=== PATIENT | female | born 1970 | race Caucasian/White ===

== ENCOUNTER 2020-11-14 11:08 | Inpatient (IN) | payer OTHER ==
[~2020-11-14] VITALS: Ht 162.6 cm; Wt 65.8 kg
--- NOTE | 2020-11-14 11:20 | NUR ---
BIB RA 881 FROM HOME,ABDOMINAL PAIN X 5 DAYS ASSOC. W/ NAUSEA. PATIENT ASSISTED TO BED 11, NO DISTRESS NOTED. PLACED ON THE MANAGER CARE. URINE SAMPLE OBTAINED AND SENT TO LAB.
[2020-11-14 11:43] LABS: BILIRUBIN,URINE Negative (NEGATIVE); COLOR,URINE YELLOW (YELLOW); LEUKOCYTE ESTERASE ,URINE Large (NEGATIVE); NITRITE, URINE Negative (NEGATIVE); PROTEIN,URINE >=300 mg/dl (NEGATIVE); UGLUCOSE Negative (NEGATIVE); UROBILINOGEN,URINE 0.2 EU/dL (0.2)
[2020-11-14] MEDS ORDERED: MORPHINE SULFATE INJ 4 MG/ML DISP.SYRIN ONE (11:43)
[2020-11-14] MEDS ORDERED: ONDANSETRON HCL/PF 4 MG/2 ML VIAL ONE (11:43)
--- NOTE | 2020-11-14 11:50 | NUR ---
IV LINE ESTABLISHED BLOOD DRAWN AND SENT TO LAB.
[2020-11-14 11:55] LABS: RBC,URINE TOO NUMEROUS TO COUN /HPF (0-2); SQUAMOUS EPITHELIAL CELL,UR Many /HPF (None Seen); WBC,URINE TOO NUMEROUS TO COUN /HPF (0-3)
[2020-11-14 11:56] LABS: BACTERIA,URINE 4+ /HPF (None Seen)
[2020-11-14 11:58] LABS: BASOPHILS # (AUTO) 0.1 K/uL (0.0-0.2); BASOPHILS % (AUTO) 0.7 % (0.0-2.0); EOSINOPHILS % (AUTO) 0.2 % (0.0-6.0); HEMATOCRIT 28 % (33-45); HEMOGLOBIN 8.3 g/dL (11.5-14.8); LYMPHOCYTES # (AUTO) 1.8 K/uL (0.8-4.8); LYMPHOCYTES % (AUTO) 14.1 % (20.0-44.0); MEAN CORPUSCULAR HGB CONC 30 g/dl (31.0-36.0); MEAN CORPUSCULAR VOLUME 65 fL (82-100); MONOCYTES # (AUTO) 1.1 K/uL (0.1-1.30); MONOCYTES % (AUTO) 9.1 % (2.0-12.0); NEUTROPHILS # (AUTO) 9.6 K/uL (1.8-8.9); NEUTROPHILS % (AUTO) 75.9 % (43.0-81.0); PLATELET COUNT (AUTO) 289 K/uL (150-450); RED BLOOD CELL COUNT(AUTO) 4.27 MIL/uL (4.0-5.2); WHITE BLOOD COUNT (AUTO) 12.7 K/uL (4.3-11.0)
[2020-11-14] MEDS ORDERED: MORPHINE SULFATE INJ 2 MG/ML DISP.SYRIN IV ONE (12:00)
[2020-11-14] MEDS ORDERED: ONDANSETRON HCL/PF 4 MG/2 ML VIAL IVP ONE (12:00)
[2020-11-14 12:03] LABS: CALCIUM, SERUM 9.3 mg/dL (8.5-10.1); CREATININE 0.8 mg/dL (0.6-1.3); POTASSIUM 3.4 mmol/L (3.5-5.1)
[2020-11-14 12:09] LABS: ALBUMIN 3.3 g/dL (3.4-5.0); BILIRUBIN,DIRECT 0.1 mg/dL (0.0-0.2); BILIRUBIN,TOTAL 0.5 mg/dL (0.2-1.0); TOTAL PROTEIN, SERUM 7.8 g/dL (6.4-8.2)
[2020-11-14] MEDS ORDERED: CEFTRIAXONE 1 G in IV D5W 50 ML IV ONE (12:30)
[2020-11-14] MEDS ORDERED: IV NS 0.9% 1,000 ML BAG IV ONE (12:30)
[2020-11-14] MEDS ORDERED: CEFTRIAXONE 1GM BAG (ER ONLY) 50 ML IV ONE (12:33)
[2020-11-14] MEDS ORDERED: FLAGYL/NS RTU 500 MG/100 ML PIGGYBACK IV ONE (13:00)
--- NOTE | 2020-11-14 13:24 | NUR ---
COVID SWAB SENT TO LAB.
--- NOTE | 2020-11-14 13:42 | NUR ---
SENAIT CALLED. AWAITING CALL BACK.
--- NOTE | 2020-11-14 14:20 | NUR ---
bed assigned 323-2
--- NOTE | 2020-11-14 14:26 | NUR ---
REPORT GIVEN TO GURU COLMENARES.
--- NOTE | 2020-11-14 15:04 | NUR ---
PATIENT TRANSFERRED TO ROOM 323-1 IN STABLE CONDITION. NO DISTRESS NOTED.
--- NOTE | 2020-11-14 15:05 | NUR ---
MS RN NOTE PATIENT ADMITTED FROM ER. PATIENT IS IN NO ACUTE DISTRESS. VITAL SIGNS ARE WNL. PATIENT IS AMBULATORY. IV ACCES ON RIGHT AC RAFAEL 20. SAFETY PRECAUTIONS ARE ON, BED IS LOCKED IN THE LOWEST POSITION WITH SIDE RAILS UP, CALL LIGHT WITHIN REACH, WILL CONTINUE TO MONITOR.
[2020-11-14] MEDS: ENOXAPARIN SODIUM 40 MG/0.4 ML DISP.SYRIN SQ SCH ×2 (15:30→16:55)
[2020-11-14] MEDS ORDERED: LABETALOL 20 MG/4 ML VIAL IV PRN (15:30)
[2020-11-14] MEDS ORDERED: ONDANSETRON HCL/PF 4 MG/2 ML VIAL IVP PRN (15:30)
[2020-11-14] MEDS ORDERED: ACETAMINOPHEN 325 MG TABLET PO PRN (15:30)
[2020-11-14] MEDS ORDERED: MORPHINE SULFATE INJ 2 MG/ML DISP.SYRIN IV PRN (15:30)
[2020-11-14 15:54] LABS: BAND % (MANUAL) 2 % (0.0-5.0); LYMPHOCYTES % (MANUAL) 14 % (16-48); MONOCYTES % (MANUAL) 9 % (0-11.0); NEUTROPHILS % (MANUAL) 75 (42-76)
[2020-11-14 16:01] LABS: IRON, SERUM 14 ug/dl (50-175); TOTAL IRON BINDING CAPACITY 404 ug/dl (250-450)
[2020-11-14] MEDS: PHENAZOPYRIDINE HCL 200 MG TABLET PO SCH ×2 (16:53→16:55)
[2020-11-14] MEDS: IV NS 0.9% 1,000 ML IV PRN (16:54)
--- NOTE | 2020-11-14 17:19 | NUR ---
MS RN NOTE PATIENT REFUSED SCHEDULED MEDICATION LEVONOX, EDUCATED RISK VS BENEFITS, PATIENT KEPT OF REFUSING
--- NOTE | 2020-11-14 18:30 | NUR ---
MS RN CLOSING NOTE PATIENT IS IN BED RESTING, PATIENT IS IN NO ACUTE DISTRESS. PATIENT IS AMBULATORY. SAFETY PRECAUTIONS ARE ON, BED IS LOCKED IN THE LOWEST POSITION WITH SIDE RAILS UP, CALL LIGHT WITHIN REACH, ENDORSE PATIENT TO PATTERN ATTENDANT NURSE.
--- NOTE | 2020-11-14 19:20 | NUR ---
RN OPENING NOTE PATIENT IN BED, EYES CLOSED. EASILY AWAKENED. PATIENT DOES NOT REPORT ANY PAIN OR DISCOMFORT AT THIS TIME. BREATHING EVEN AND UNLABORED, TOLERATING ROOM AIR. PATIENT IS ABLE TO MAKE NEEDS KNOWN, A/O X 4. REFUSES IV FLUIDS AT THIS TIME. PATIENT'S IV ACCESS PATENT AND INTACT. SAFETY MEASURES IN PLACE: BED LOCKED IN LOWEST POSITION, SIDE RAILS UP, CALL LIGHT WITHIN REACH. WILL MONITOR PATIENT CLOSELY.
[2020-11-14 20:00] VITALS: BP 106/59
[2020-11-14] MEDS: METRONIDAZOLE 500MG/ NS 100ML 500 MG in PREMIX 1 EA IV SCH (21:16)
--- NOTE | 2020-11-14 22:30 | NUR ---
RN NOTE OBTAINED KDUR 10 MEQ X 1 NOW FOR POTASSIUM LEVEL OF 3.4. ORDER FROM LIZETH LOYA.
[2020-11-14] MEDS ORDERED: POTASSIUM CHLORIDE 10 MEQ TABLET.SA PO ONE (23:00)
[2020-11-15] VITALS (8 sets, daily range): BP systolic 94–120; BP diastolic 47–67
[2020-11-15] MEDS: METRONIDAZOLE 500MG/ NS 100ML 500 MG in PREMIX 1 EA IV SCH ×3 (05:04→21:13)
[2020-11-15 06:23] LABS: BASOPHILS # (AUTO) 0.1 K/uL (0.0-0.2); BASOPHILS % (AUTO) 0.7 % (0.0-2.0); HEMATOCRIT 23 % (33-45); HEMOGLOBIN 7.1 g/dL (11.5-14.8); LYMPHOCYTES # (AUTO) 1.4 K/uL (0.8-4.8); LYMPHOCYTES % (AUTO) 17.5 % (20.0-44.0); MEAN CORPUSCULAR HGB CONC 31 g/dl (31.0-36.0); MEAN CORPUSCULAR VOLUME 65 fL (82-100); MONOCYTES # (AUTO) 1.2 K/uL (0.1-1.30); MONOCYTES % (AUTO) 15.4 % (2.0-12.0); NEUTROPHILS # (AUTO) 5.1 K/uL (1.8-8.9); NEUTROPHILS % (AUTO) 65.4 % (43.0-81.0); PLATELET COUNT (AUTO) 209 K/uL (150-450); RED BLOOD CELL COUNT(AUTO) 3.52 MIL/uL (4.0-5.2); WHITE BLOOD COUNT (AUTO) 7.7 K/uL (4.3-11.0)
[2020-11-15 07:16] LABS: ALBUMIN 2.7 g/dL (3.4-5.0); BILIRUBIN,TOTAL 0.3 mg/dL (0.2-1.0); CALCIUM, SERUM 8.7 mg/dL (8.5-10.1); CREATININE 0.7 mg/dL (0.6-1.3); PHOSPHORUS 2.8 mg/dL (2.5-4.9); POTASSIUM 3.9 mmol/L (3.5-5.1); TOTAL PROTEIN, SERUM 6.6 g/dL (6.4-8.2)
--- NOTE | 2020-11-15 07:24 | NUR ---
RN CLOSING NOTE PATIENT IN BED, AWAKE. PATIENT DOES NOT REPORT ANY PAIN OR DISCOMFORT AT THIS TIME. BREATHING EVEN AND UNLABORED, TOLERATING ROOM AIR. PATIENT IS ABLE TO MAKE NEEDS KNOWN, A/O X 4.EDUCATED PATIENT ON IV HYDRATION, WILLING TO KEEP IV ON NOW. NS @75 ML/HR INFUSING WELL. SAFETY MEASURES IN PLACE: BED LOCKED IN LOWEST POSITION, SIDE RAILS UP, CALL LIGHT WITHIN REACH. ALL NEEDS CARRIED OUT. WILL ENDORSE TO DAY SHIFT NURSE FOR LEODAN.
--- NOTE | 2020-11-15 08:00 | NUR ---
RN OPENING NOTE PT AWAKE IN BED RESTING. ON RA WITH NO SOB OR RESPIRATORY DISTRESS PRESENT. A/O X4 AND YAKUT SPEAKING. NO COMPLAINT OF PAIN OR NAUSEA AT THIS TIME. NO TRAFFIC CONTROL SPECIALIST PRESENT. NO EDEMA PRESENT. SELF AMBULATORY WITH BATHROOM PRIVILEGES. SKIN IS INTACT. IV PRESENT ON R AC 20G AND FLUSHES WELL. LABS AND ORDERS REVIEWED. SAFETY MEASURES IN PLACE. SIDE RAILS RAISED. BED LOWERED. CALL LIGHT WITHIN REACH. WILL CONTINUE TO MONITOR.
[2020-11-15 08:15] LABS: EOSINOPHILS % (MANUAL) 1 % (0-4); LYMPHOCYTES % (MANUAL) 20 % (16-48); MONOCYTES % (MANUAL) 16 % (0-11.0); NEUTROPHILS % (MANUAL) 63 (42-76)
[2020-11-15] MEDS: ENOXAPARIN SODIUM 40 MG/0.4 ML DISP.SYRIN SQ SCH (09:00)
[2020-11-15] MEDS: PHENAZOPYRIDINE HCL 200 MG TABLET PO SCH ×2 (09:35→12:28)
[2020-11-15] MEDS ORDERED: CEFTRIAXONE 1 G in IV D5W 50 ML IV SCH (13:00)
[2020-11-15] MEDS ORDERED: SOD FERRIC GLUC 125 MG in IV NS 0.9% 100 ML IV SCH (14:00)
[2020-11-15 16:19] LABS: HEMOGLOBIN 6.9 g/dL (11.5-14.8)
--- NOTE | 2020-11-15 17:00 | NUR ---
RN NOTE NOTIFIED BY WILLIE FROM LAB FOR HGB OF 6.9 AND HCT OF 22. NOTIFIED MD HUTCHINSON, 1 UNIT OF PRBC ORDERED. ORDER PLACED, CONSENTS SIGNED BY PT. WILL CONTINUE TO MONITOR.
--- NOTE | 2020-11-15 17:37 | NUR ---
RN NOTE PT COMPLAINT OF HEADACHE, 06/04. TYLENOL OFFERED AND ACCEPTED BY PT. ABLE TO TAKE PILLS WHOLE WITH NO ASPIRATION. PT TYLENOL MED NOT SCANNED DUE TO UNSCANNABLE BAR CODE. WILL CONTINUE TO MONITOR.
--- NOTE | 2020-11-15 18:05 | NUR ---
RN CLOSING NOTE PT AWAKE IN BED RESTING. ON RA WITH NO SOB OR RESPIRATORY DISTRESS PRESENT. A/O X4 AND FAROESE SPEAKING. NO COMPLAINT OF PAIN OR NAUSEA AT THIS TIME. NO CARGO ROUTER PRESENT. NO EDEMA PRESENT. SELF AMBULATORY WITH BATHROOM PRIVILEGES. SKIN IS INTACT. IV PRESENT ON R AC 20G AND FLUSHES WELL. ROUTINE MEDS GIVEN.LABS AND ORDERS REVIEWED. PENDING BLOOD TRANSFUSION FOR HGB OF 6.9. SAFETY MEASURES IN PLACE. SIDE RAILS RAISED. BED LOWERED. CALL LIGHT WITHIN REACH. REPORT TO BE GIVEN TO NIGHT NURSE FOR LEODAN.
--- NOTE | 2020-11-15 19:00 | NUR ---
RN NOTES: -RECEIVE AWAKE ON BED,A/OX4, ORIENTED TO UNIT AND STAFF,ON ROOM AIR, NO SIGN OF SOB OR RESPIRATORY DISTRESS,RAC G#20 INTACT WITH IVF OF NS AT 75 ML/HR ONGOING,LATEST HG-6.9 FOR BT OF 1 UNIT PRBC, PER BHARATH/RN ENDORSEMENT ITS NOT YET READY IN THE LAB, CONSENT WAS SIGNED, THIS IS HER FIRST TRANSFUSION IN [facility], NO BLOOD BANK STICKER YET -STILL AWAITING FOR BLOOD TYPING AND SCREENING TO BE DONE -FALL , SAFETY AND ASPIRATION PRECAUTION OBSERVED, SHE VERBALIZED SHE FELT A BIT HUNGRY, GIVEN GELLO AND PUDDING, SHE IS VERY DELIGHTED. -EXPLAINED TO HER WE WILL WAIT FOR THE CALL BACK FROM THE LAB AND KEEP HER NOTIFIED.
--- NOTE | 2020-11-15 19:55 | NUR ---
RN NOTES; --LA FROM THE LAB JUST CAME IN AND EXTRACT BLOOD FOR BLOOD TYPING AND CROSS MATCHING, SHE WILL NOTIFY US ONCE BLOOD TRANSFUSION IS AVAILABLE.
[2020-11-15] MEDS: IV NS 0.9% 1,000 ML IV PRN (22:05)
--- NOTE | 2020-11-15 22:05 | NUR ---
RN NOTES: IVF CONSUMED, REPLACED WITH NEW BAF , UNABLE TO SCAN, MANUALLY ENTERED BAR CODE,CONTINUE OF NS AT 75 ML/HR, BLOOD IS READY FOR HEAVY DUTY CUSTODIAN IN THE LAB.
--- NOTE | 2020-11-15 22:39 | NUR ---
RN NOTES: 2209-WENT TO LAB TO P/U THE BLOOD, CHECKED WITH CONFERENCE CENTER MANAGER-LAYA. 2224-CHRCK WITH THERESA/DARRIAN PRIOR TO STRT OF BLOOD TRANSFUSION -RH O POSITIVE, 358 ML, EXPIRY: 12/14/2020 ; UNIT 3: [id number] -SCAN PATIENT WRIST BAND, BLOOD BANK NUMBER -CHECK BAG, NO LEAKAGE, NO BUBBLES NOTED. -V/S--T-97.9 RI-70 RR-18 T-98 BP-117/60 -BLOOD TRANSFUSION STARTED AT 2231
--- NOTE | 2020-11-15 22:43 | NUR ---
RN NOTES: STAYED WITH THE PATIENT ON THE FIRST 15 MINUTES AND OBSERVED FOR TRANSFUSION REACTION, SLOWLY INCREASED THE RATE.
--- NOTE | 2020-11-15 23:35 | NUR ---
RN NOTES: -CONTINUE ON CLOSE WATCH, RN STAYED MOST OF THE TIME IN HER BED SIDE, NO ITCHINESS, NO ALTERATION IN V/S, NO FEVER, NO HEADACHE, NO HIVES, NO RASHES, NO BACK PAIN, NO HIVES NOTED. -NO TRANSFUSION REACTION AT THIS TIME.
[2020-11-16 00:01] VITALS: BP 101/60
[2020-11-16 00:31] VITALS: BP 105/61
[2020-11-16 01:31] VITALS: BP 108/65
--- NOTE | 2020-11-16 01:46 | NUR ---
RN NOTES: BT COMPLETED AT 0143, NO TRANSFUSION REACTION NOTED CONTINUE TO MONITOR POST TRANSFUSION.
[2020-11-16 02:22] LABS: HEMOGLOBIN 7.9 g/dL (11.5-14.8)
--- NOTE | 2020-11-16 02:30 | NUR ---
RN NOTES: SHE WENT TO THE BATHROOM WHEN SHE CAME BACK, IV CANNULA WAS OUT. REQUEST TO REINSERT AGAIN, VERY COOPERATIVE, INSERTED ON THE LH G#22, SECURED WITH TRANSPARENT DRESSING,IVF REQUEST TO RESUME IVF LATER SHE WANT TO REST HER HAND FOR AWHILE.
--- NOTE | 2020-11-16 05:21 | NUR ---
RN NOTES: REFUSE TO PUT BACK HER IVF, SHE WANT TO SLEEP, KEPT CALL LIGHT WITHIN EASY REACH, NO FEVER, NO SIGN OF TRANSFUSION REACTION NOTED.
[2020-11-16] MEDS: METRONIDAZOLE 500MG/ NS 100ML 500 MG in PREMIX 1 EA IV SCH (05:27)
--- NOTE | 2020-11-16 07:02 | NUR ---
RN NOTES: AWAKE, SHE WAS TELLING HER IV CANNULA IS OUT, WHEN RN CHECKED, THERE IS BACK FLOW, EXPLAINED TO HER WE WILL KEEP IT, SHE VERBALIZED "I WANNA GO HOME TODAY, I HAVE CLASS TOMORROW", REQUEST HER TO WAIT AND WILL LET DOCTOR KNOW MAYBE HER IV/ATB WILL BE CHNAGE TO ORAL AND SHE CAN BE DISCHARGE, HER LATEST HG-7.9, ENDORSED FOR CONTINUITY OF CARE.
--- NOTE | 2020-11-16 07:48 | NUR ---
RN OPENING NOTE PT AWAKE IN BED RESTING. ON RA WITH NO SOB OR RESPIRATORY DISTRESS PRESENT. A/O X4 AND [place] SPEAKING. NO COMPLAINT OF PAIN OR NAUSEA AT THIS TIME. NO DIAMOND SIZER PRESENT. NO EDEMA PRESENT. SELF AMBULATORY WITH BATHROOM PRIVILEGES. SKIN IS INTACT. IV PRESENT ON R HAND 20G AND FLUSHES WELL. PT REQUESTING D/C TODAY, NOTIFIED. LABS AND ORDERS REVIEWED. SAFETY MEASURES IN PLACE. SIDE RAILS RAISED. BED LOWERED. CALL LIGHT WITHIN REACH. WILL CONTINUE TO MONITOR.
[2020-11-16] MEDS: ENOXAPARIN SODIUM 40 MG/0.4 ML DISP.SYRIN SQ SCH (08:17)
[2020-11-16 08:24] LABS: BASOPHILS # (AUTO) 0.1 K/uL (0.0-0.2); BASOPHILS % (AUTO) 1.3 % (0.0-2.0); EOSINOPHILS % (AUTO) 2.5 % (0.0-6.0); HEMATOCRIT 29 % (33-45); HEMOGLOBIN 8.9 g/dL (11.5-14.8); LYMPHOCYTES # (AUTO) 1.5 K/uL (0.8-4.8); LYMPHOCYTES % (AUTO) 23.6 % (20.0-44.0); MEAN CORPUSCULAR HGB CONC 30 g/dl (31.0-36.0); MEAN CORPUSCULAR VOLUME 69 fL (82-100); MONOCYTES # (AUTO) 0.7 K/uL (0.1-1.30); MONOCYTES % (AUTO) 11.5 % (2.0-12.0); NEUTROPHILS # (AUTO) 3.9 K/uL (1.8-8.9); NEUTROPHILS % (AUTO) 61.1 % (43.0-81.0); PLATELET COUNT (AUTO) 288 K/uL (150-450); RED BLOOD CELL COUNT(AUTO) 4.28 MIL/uL (4.0-5.2); WHITE BLOOD COUNT (AUTO) 6.4 K/uL (4.3-11.0)
[2020-11-16 09:29] LABS: CALCIUM, SERUM 9.2 mg/dL (8.5-10.1); CREATININE 0.6 mg/dL (0.6-1.3); MAGNESIUM 2.2 mg/dL (1.8-2.4); PHOSPHORUS 3.1 mg/dL (2.5-4.9); POTASSIUM 3.8 mmol/L (3.5-5.1)
[2020-11-16] MEDS ORDERED: CEPH500C2 PO (12:52)
--- NOTE | 2020-11-16 12:54 | NUR ---
SENIOR ENVIRONMENTAL PRACTICE LEADER NOTE PT DISCHARGED HOME WITH BUS PASS SUPPLIED BY NURSING RESPIRATORY CARE ASSISTANT. PT IN STABLE CONDITION. IV LINE REMOVED. ID BAND REMOVED. PRESCRIPTION GIVEN TO PT. SKIN IS INTACT. BELONGINGS CHECKED AND GIVEN TO PT.
[2020-11-16 13:39] LABS: EOSINOPHILS % (MANUAL) 4 % (0-4); LYMPHOCYTES % (MANUAL) 23 % (16-48); MONOCYTES % (MANUAL) 9 % (0-11.0); NEUTROPHILS % (MANUAL) 64 (42-76)
[2020-11-16] MEDS ORDERED: METRONIDAZOLE 500 MG TABLET PO SCH (14:00)
== END 2020-11-16 13:00 | disposition home or self-care (01) | DRG 463 ==
LOC: ER 11:11 → MED 14:37
PROVIDERS: ADMIT Internal Medicine; ATTEND Hospitalist
PROC: 30233N1 Transfusion of Nonautologous Red Blood Cells into Peripheral Vein, Percutaneous Approach (ICD-10-PCS; principal; 2020-11-15)
DX: N39.0 Urinary tract infection, site not specified (principal); E87.8 Other disorders of electrolyte and fluid balance, not elsewhere classified; E87.1 Hypo-osmolality and hyponatremia; K57.32 Diverticulitis of large intestine without perforation or abscess without bleeding; D50.9 Iron deficiency anemia, unspecified; F15.90 Other stimulant use, unspecified, uncomplicated; E87.6 Hypokalemia; E86.0 Dehydration; K59.00 Constipation, unspecified; Z98.891 History of uterine scar from previous surgery; Z20.822 Contact with and (suspected) exposure to COVID-19
CPT/HCPCS: 36415; 76705-TC; 80048-TC; 80053-TC; 80076-TC; 81001; 82728-TC; 83540-TC; 83690-TC; 83735-TC; 84100-TC; 85025-TC; 85027-TC; 86850-TC; 87081-TC; 87086-TC; 87186-TC; A4216; C9803; G0378; J0696; J1650; J2270; J2405; J2916; J7030; J7050; J7060; P9016

== ENCOUNTER 2020-12-28 19:14 | Emergency (ER) | payer OTHER ==
[~2020-12-28] VITALS: Ht 167.6 cm; Wt 90.7 kg
[~2020-12-28 19:14] MED LIST: CEPH500C2 PO
--- NOTE | 2020-12-28 19:20 | NUR ---
HAYDER FOR BIZARRE BEHAVIOR. PER EMS PT RAN IN TO SOMEONE'S HOUSE. PT AGITATED AND CONFUSED ON TRIAGE . UNABLE TO PROVIDE INFO HOWEVER ADMITTED ON USING METH, PT WAS PLACED IN BED 13 ER, ON MONITOR. VSS. SI PRECAUTION IMPLEMENTED, UNDER OBSERVATION OF A SITTER. NEEDS ATENDED , WILL CONT TO MONITOR ,
--- NOTE | 2020-12-28 19:28 | NUR ---
PT PROVIDED WITH WARM BLANKETS.
[2020-12-28] MEDS ORDERED: OLANZAPINE 10 MG VIAL IM ONE ×4 (19:37→21:00)
[2020-12-28] MEDS ORDERED: LORAZEPAM INJ 2 MG/ML VIAL ONE ×2 (19:38→20:45)
[2020-12-28] MEDS ORDERED: LORAZEPAM INJ 2 MG/ML VIAL IM ONE (20:00)
[2020-12-28 20:23] LABS: BASOPHILS # (AUTO) 0.1 K/uL (0.0-0.2); BASOPHILS % (AUTO) 1.1 % (0.0-2.0); EOSINOPHILS % (AUTO) 2.1 % (0.0-6.0); HEMATOCRIT 29 % (33-45); HEMOGLOBIN 8.7 g/dL (11.5-14.8); LYMPHOCYTES # (AUTO) 1.2 K/uL (0.8-4.8); LYMPHOCYTES % (AUTO) 16.4 % (20.0-44.0); MEAN CORPUSCULAR HGB CONC 31 g/dl (31.0-36.0); MEAN CORPUSCULAR VOLUME 71 fL (82-100); MONOCYTES # (AUTO) 0.8 K/uL (0.1-1.30); MONOCYTES % (AUTO) 11.3 % (2.0-12.0); NEUTROPHILS % (AUTO) 69.1 % (43.0-81.0); PLATELET COUNT (AUTO) 291 K/uL (150-450); RED BLOOD CELL COUNT(AUTO) 4.05 MIL/uL (4.0-5.2); WHITE BLOOD COUNT (AUTO) 7.3 K/uL (4.3-11.0)
[2020-12-28 20:36] LABS: CALCIUM, SERUM 9.8 mg/dL (8.5-10.1); CARBON DIOXIDE 24 mmol/L (21-32); CHLORIDE 107 mmol/L (98-107); CREATININE 0.9 mg/dL (0.6-1.3); GLUCOSE 108 mg/dL (74-106); POTASSIUM 3.2 mmol/L (3.5-5.1); SODIUM SERUM 142 mmol/L (136-145); UREA NITROGEN, BLOOD 16 mg/dL (7-18)
--- NOTE | 2020-12-28 20:53 | NUR ---
PT MEDICATED ORDERED.
[2020-12-28 20:54] LABS: ALANINE AMINOTRANSFERASE 34 U/L (12-78); ALKALINE PHOSPHATASE 59 U/L (46-116); ASPARTATE AMINOTRANSFERASE 58 U/L (15-37); BILIRUBIN,DIRECT 0.2 mg/dL (0.0-0.2); BILIRUBIN,TOTAL 0.5 mg/dL (0.2-1.0); TOTAL PROTEIN, SERUM 7.6 g/dL (6.4-8.2)
[2020-12-28 20:57] LABS: ACETAMINOPHEN < 0 ug/ml (10-30); ALCOHOL, BLOOD < 3 mg/dL (0-0)
[2020-12-28] MEDS ORDERED: LORAZEPAM INJ 2 MG/ML VIAL IV ONE (21:00)
[2020-12-28 21:13] LABS: LYMPHOCYTES % (MANUAL) 14 % (16-48); MONOCYTES % (MANUAL) 11 % (0-11.0); NEUTROPHILS % (MANUAL) 75 (42-76)
--- NOTE | 2020-12-28 23:26 | NUR ---
urine collected and sent to lab
[2020-12-28 23:32] LABS: BILIRUBIN,URINE Negative (NEGATIVE); COLOR,URINE YELLOW (YELLOW); LEUKOCYTE ESTERASE ,URINE Negative (NEGATIVE); NITRITE, URINE Negative (NEGATIVE); PH,URINE 5.5 (5.0-8.0); PROTEIN,URINE Trace mg/dl (NEGATIVE); UGLUCOSE Negative (NEGATIVE); UROBILINOGEN,URINE 0.2 EU/dL (0.2)
[2020-12-29] MEDS ORDERED: OLAN5TAB3 PO (04:33)
--- NOTE | 2020-12-29 05:45 | NUR ---
pt ok to discharge home per dr goss. Patient discharged to home in stable condition. Written and verbal after care instructions given. Patient verbalizes understanding of instruction.Patient is awake and alert to self, day, and place. pt ambulatory with a steady gait
[2020-12-29 05:46] VITALS: BP 132/78
== END 2020-12-29 05:52 | disposition home or self-care (01) ==
LOC: ER 19:16
DX: F15.121 Other stimulant abuse with intoxication delirium (principal); F17.200 Nicotine dependence, unspecified, uncomplicated; Z98.890 Other specified postprocedural states; Z60.2 Problems related to living alone
CPT/HCPCS: 36415; 80048; 80076; 80143; 80307; 80320; 81003; 85007; 85025; 96372 ×2; 99291; 99406; J2060 ×2; J3490 ×2; G0480

== ENCOUNTER 2020-12-30 04:00 | Emergency (ER) | payer OTHER ==
[~2020-12-30] VITALS: Ht 165.1 cm; Wt 88.0 kg
[~2020-12-30 04:00] MED LIST changes: +OLAN5TAB3 PO
[2020-12-30] MEDS ORDERED: MORPHINE SULFATE INJ 2 MG/ML DISP.SYRIN IV ONE (04:30)
[2020-12-30 05:44] VITALS: BP 130/70
--- NOTE | 2020-12-30 05:44 | NUR ---
Patient discharged to assisted in stable condition. Written and verbal after care instructions given. Patient verbalizes understanding of instruction.
== END 2020-12-30 05:44 ==
LOC: ER 04:02
DX: Z02.89 Encounter for other administrative examinations (principal); R06.02 Shortness of breath; F15.10 Other stimulant abuse, uncomplicated; F17.200 Nicotine dependence, unspecified, uncomplicated; Z98.890 Other specified postprocedural states; Z60.2 Problems related to living alone; Z79.899 Other long term (current) drug therapy
CPT/HCPCS: 71045-TC

== ENCOUNTER 2021-01-05 18:01 | Emergency (ER) | payer OTHER ==
[~2021-01-05] VITALS: Ht 165.1 cm; Wt 74.8 kg
--- NOTE | 2021-01-05 19:10 | NUR ---
TOOK OVER PT CARE. PT AAOX4. C/O FACIAL PAIN CLAIMING SHE GOT PEPPER SPRAYED. PLACED IN BED 15, NO ACUTE DISTRESS NOTED.
[2021-01-05] MEDS ORDERED: LORAZEPAM INJ 2 MG/ML VIAL IM ONE (19:30)
[2021-01-05] MEDS ORDERED: LORAZEPAM INJ 2 MG/ML VIAL ONE (19:35)
--- NOTE | 2021-01-05 19:45 | NUR ---
PT PROVIDED WITH WARM BLANKETS.
--- NOTE | 2021-01-05 23:54 | NUR ---
RESTING IN BED, NO ACUTE DISTRESS.
[2021-01-06 04:05] VITALS: BP 133/76
--- NOTE | 2021-01-06 04:05 | NUR ---
Patient discharged to home in stable condition. Written and verbal after care instructions given. Patient verbalizes understanding of instruction. Pt denies SI and Hi. Ambulated out of ED. VSS.
== END 2021-01-06 04:06 | disposition home or self-care (01) ==
LOC: ER 18:05
DX: F15.10 Other stimulant abuse, uncomplicated (principal); R51.9 Headache, unspecified; F17.200 Nicotine dependence, unspecified, uncomplicated; Z59.0 Homelessness; Z98.890 Other specified postprocedural states; Z60.2 Problems related to living alone; Z79.899 Other long term (current) drug therapy
CPT/HCPCS: 96372; 99283; J2060

== ENCOUNTER 2024-11-09 10:08 | Emergency (ER) | payer OTHER ==
[~2024-11-09] VITALS: Ht 160 cm; Wt 88.5 kg
[2024-11-09 10:43] VITALS: TEMP 97.8
[2024-11-09 10:45] LABS: WHITE BLOOD COUNT (AUTO) 3.6 K/uL (4.3-11.0)
[2024-11-09 10:48] LABS: PLATELET COUNT (AUTO) 235 K/uL (150-450); RED BLOOD CELL COUNT(AUTO) 3.43 MIL/uL (4.0-5.2); RED CELL DISTRIBUTION WIDTH 19.1 % (11.5-15.0)
[2024-11-09 10:50] LABS: CALCIUM, SERUM 9.0 mg/dL (8.5-10.1); CREATININE 0.7 mg/dL (0.6-1.3); SODIUM SERUM 135.0 mmol/L (136-145); UREA NITROGEN, BLOOD 13.0 mg/dL (7-18)
[2024-11-09 10:56] LABS: ASPARTATE AMINOTRANSFERASE 23.0 U/L (15-37); TOTAL PROTEIN, SERUM 7.0 g/dL (6.4-8.2)
[2024-11-09 11:08] LABS: INR 1.03 (0.91-1.10)
[2024-11-09 11:38] VITALS: BP 134/84; O2SAT 100
== END 2024-11-09 11:39 | disposition home or self-care (01) ==
LOC: EDUNIT# 10:08 → ER 10:18
DX: D64.9 Anemia, unspecified (principal); F17.200 Nicotine dependence, unspecified, uncomplicated; J45.909 Unspecified asthma, uncomplicated; Z60.2 Problems related to living alone; Z79.899 Other long term (current) drug therapy; Z86.2 Personal history of diseases of the blood and blood-forming organs and certain disorders involving the immune mechanism
CPT/HCPCS: 36415; 80048-TC; 80076-TC; 85025-TC; 85730-TC; 86850-TC